=== PATIENT | female | born 1985 | race Two or more races ===

== ENCOUNTER 2019-05-14 08:13 | Inpatient (IN) | payer OTHER ==
[~2019-05-14] VITALS: Ht 167.6 cm; Wt 3.2 kg
[2019-05-14] MEDS ORDERED: ASPIR 8181 MG PO (08:49)
[2019-05-14] MEDS ORDERED: PRENATAL + DHA1 EAC1 PO (08:50)
== END 2019-05-17 11:58 | disposition home or self-care (01) | DRG 788 ==
LOC: OB/GYN 08:13 → LDR 08:13 → O/R 14:43 → OB/GYN 18:05
PROVIDERS: ADMIT Obstetrics & Gynecology
PROC: 4A1HXCZ Monitoring of Products of Conception, Cardiac Rate, External Approach (ICD-10-PCS; 2019-05-14)
PROC: 10D00Z1 Extraction of Products of Conception, Low, Open Approach (ICD-10-PCS; principal; 2019-05-14 17:00)
DX: O82 Encounter for cesarean delivery without indication (principal); Z3A.38 38 weeks gestation of pregnancy; Z37.0 Single live birth